=== PATIENT | female | born 1965 | race Caucasian/White ===

== ENCOUNTER 2019-09-21 11:50 | Emergency (ER) | payer OTHER, SELFPAY ==
[2019-09-21 11:58] VITALS: BP 121/87; PULSE 80; RESP 16; TEMP 36.8; O2SAT 100
--- NOTE | 2019-09-21 12:06 | ED.GENADULT ---
HPI - General Adult General Chief complaint: Ear Stated complaint: Sinus pressure Time Seen by Provider: 09/21/19 12:07 Source: patient and RN notes reviewed History of Present Illness HPI narrative: Patient is a 54-year-old female that presents the urgent care with complaints of sinus pressure/pain for the last 2-1/2 weeks. Patient states that she had strep diagnosed by her PCP and just finished the amoxicillin yesterday. Patient states that she has not been able to get rid of the congestion and has been using DayQuil and Mucinex. Patient denies any fever, nausea, vomiting, cough. No other acute complaints. No acute distress noted. Patient aware the plan of care. Related Data Home Medications Medication Instructions Recorded Confirmed amlodipine-benazepril cap 09/21/19 cetirizine [Zyrtec] 10 mg PO DAILY 09/21/19 09/21/19 Allergies Allergy/AdvReac Type Severity Reaction Status Date / Time No Known Allergies Allergy Unverified 09/21/19 11:57 Review of Systems Review of Systems: Narrative: CONSTITUTIONAL: Denies fever, chills, or sweats. EYES: Denies visual changes, redness, or discharge. ENT: Reports of sinus congestion/pressure, postnasal drainage, rhinorrhea CARDIOVASCULAR: Denies chest pain, palpitations, or edema. RESPIRATORY: Denies cough or dyspnea. GASTROINTESTINAL: Denies abdominal pain, nausea, vomiting, or diarrhea. GENITOURINARY: Denies dysuria or hematuria. SKIN: Denies rash or itching. MUSCULOSKELETAL: Denies back pain, joint pain, or myalgia. NEUROLOGIC: Denies headache, numbness, or weakness. All other systems reviewed are negative, except as documented in HPI. PMFSH Comments At the time of my signature, I reviewed and agree with the nursing past medical, surgical, social, and family history. There is no relevant family history pertinent to the patient complaint. Exam Narrative: Exam Narrative: GENERAL: This is a well-nourished, well-developed patient, in no apparent distress. HEAD: normocephalic, atraumatic. Frontal sinus tenderness EYES: PERRL. Sclera clear/white. Vision is grossly intact. EARS: External ears normal, auditory canals clear and without drainage, TMs normal without perforation. Hearing grossly intact. NOSE: External nose normal with no obvious nasal discharge, bilateral erythemic nares with no rhinorrhea. THROAT: Mucous membranes moist, posterior pharynx clear. Mild postnasal drainage NECK: Neck supple CARDIOVASCULAR: Regular rate and rhythm without murmurs, gallops, or rubs. RESPIRATORY: Clear to auscultation. Breath sounds equal bilaterally. No wheezes, rales, or rhonchi. SKIN: warm, intact with no suspicious lesions or rash, good texture and turgor. NEURO: awake, alert, and oriented to person, place and time. There were no obvious focal neurologic abnormalities. EXTREMITIES: No clubbing, cyanosis, or edema. Course Vital Signs Vital signs: Vital Signs Temperature 98.2 F 09/21/19 11:58 Pulse Rate 80 09/21/19 11:58 Respiratory Rate 16 09/21/19 11:58 Blood Pressure 121/87 09/21/19 11:58 Pulse Oximetry 100 09/21/19 11:58 Temperature 98.2 F 09/21/19 11:58 Pulse Rate 80 09/21/19 11:58 Respiratory Rate 16 09/21/19 11:58 Blood Pressure 121/87 09/21/19 11:58 Pulse Oximetry 100 09/21/19 11:58 Reviewed Medical Decision Making MDM Narrative Medical decision making narrative: Advised the patient to complete steroid regimen as prescribed. Make sure to eat and drink with the medication. Use Flonase as directed. Continue to use an antihistamine [id number] such as Zyrtec or Claritin. Increase fluids and rest. Use humidifier at night. Follow-up with PCP within 2 to 5 days or for worsening symptoms or failure to improve. Differential Diagnosis Differential Diagnosis: Pneumonia, Allergic Rhinitis, Upper respiratory cough syndrome, Pharyngitis, Sinusitis, Bronchitis, otitis media, viral URI, Asthma/reactive airway disease, COPD, emphysema Vital Si
== END 2019-09-21 12:31 | disposition home or self-care (01) ==
PROVIDERS: Emergency Provider Nurse Practitioner Family; PCP Internal Medicine Infectious Disease
DX: J32.9 Chronic sinusitis, unspecified (principal); I10 Essential (primary) hypertension
CPT/HCPCS: 99213; G0463

== ENCOUNTER 2021-10-17 18:59 | Emergency (ER) | payer BC, OTHER, SELFPAY ==
--- NOTE | ~2021-10-17 | XR_ITS ---
EXAMINATION: XR finger 5th RT min 2V EXAM DATE: 10/17/2021 19:19 INDICATION: PAIN mid phalanx Rt 5th finger;inj this PM;prev fx dist phalanx. TECHNIQUE: Right 5th finger frontal, lateral and oblique projections obtained and reviewed. There is no prior study for comparison. FINDINGS: There is acute closed posttraumatic longitudinal fracture extending from the right 5th mid dle phalangeal base to its neck. This is nondisplaced. There is overlying soft tissue swelling. IMPRESSION: Right 5th middle phalangeal intra-articular fracture into proximal interphalangeal joint . Reviewed, dictated and finalized at location . IMPRESSION: Right 5th middle phalangeal intra-articular fracture into proximal interphalangeal joint.
--- NOTE | 2021-10-17 19:03 | ED.EXTPRO ---
HPI - Extremity Problem General Chief complaint: Wound/Laceration Stated complaint: Right pinky finger injury Time Seen by Provider: 10/17/21 19:02 Source: patient Mode of arrival: ambulatory Limitations: no limitations History of Present Illness HPI Narrative: Ms. Samayoa is a 56-year-old female patient presenting to the clinic today with complaints of right pinky finger injury today when playing volleyball this evening. She reports she has had a old fracture of the same finger and never had it repaired. Does have some swelling and pain to the tip of the fifth finger. Related Data Home Medications Medication Instructions Recorded Confirmed amlodipine-benazepril cap 09/21/19 cetirizine [Zyrtec] 10 mg PO DAILY 09/21/19 09/21/19 Allergies Allergy/AdvReac Type Severity Reaction Status Date / Time No Known Allergies Allergy Unverified 10/17/21 19:10 Review of Systems Review of Systems: Pertinent positives per HPI. Patient denies any fever, chills, rash, headache, visual changes, dizziness, cough, runny nose, sore throat, shortness of breath, chest pain, palpitations, nausea, vomiting, diarrhea, constipation, abdominal pain, or any urinary issues. PMFSH Comments At the time of my signature, I reviewed and agree with the nursing past medical, surgical, social, and family history. There is no relevant family history pertinent to the patient complaint. Exam Narrative: General: Well-developed, well nourished, in no apparent distress Cardio: Regular rate and rhythm, s1 and s2 normal, no murmur appreciated. Resp: Clear to auscultation bilaterally, no rhonchi, rales, wheezing or rubs. Musculoskeletal: Mild swelling without step-off deformity of the right fifth distal finger, tender to palpation over the distal finger, DIP joint and MIP joint, limited range of motion due to pain and swelling, normal gait and station Course Course Emergency Course: Portions of this record may have been created with voice recognition software. Level of Care: Express Care Visit Vital Signs Vital signs: Vital Signs Temperature 36.6 C 10/17/21 19:07 Pulse Rate 110 H 10/17/21 19:07 Respiratory Rate 16 10/17/21 19:07 Blood Pressure 138/81 10/17/21 19:07 Pulse Oximetry 98 10/17/21 19:07 Temperature 36.6 C 10/17/21 19:07 Pulse Rate 110 H 10/17/21 19:07 Respiratory Rate 16 10/17/21 19:07 Blood Pressure 138/81 10/17/21 19:07 Pulse Oximetry 98 10/17/21 19:07 Vital signs reviewed MDM - Extremity (Nontraumatic) MDM Narrative Medical decision making narrative: Upon assessment patient's right fifth finger is swollen and tender to palpation. Is unable to fully flex or extend her DIP or MIP joints of the right fifth finger. History of fracture prior to this injury. Radiologist reviewed x-ray and reported a fracture of the interphalanx joint. Patient placed in a finger splint and mikaela taped to the fourth finger with follow-up to hand specialist. Differential Diagnosis Differential diagnosis: Likely other (Finger sprain, finger fracture, open finger fracture, soft tissue injury) Imaging Data Radiologist's impression: [facility] Edy Chapin[address] [place] [address] [phone] XRay ReportSigned Patient: Aidee Samayoa LDOB: 1965MR#: [id number]/Sex: 56 / FAcct:[id number]: EXPGLEN ADM Date: 10/17/21Attending Dr: Ordering Physician: Iron Watson APRN Date of Service: 10/17/21 Procedure(s): XR finger 5th RT min 2V Accession Number(s): [id number] cc: Iron Watson APRN; Luis, Ricardo~ EXAMINATION: XR finger 5th RT min 2V EXAM DATE: 10/17/2021 19:19 INDICATION: PAIN mid phalanx Rt 5th finger;inj this PM;prev fx dist phalanx. TECHNIQUE: Right 5th finger frontal, lateral and oblique projections obtained and reviewed. There is no prior study for comparison. FINDINGS: There is acute closed posttraumatic longitudinal fracture extending from the ri
[2021-10-17 19:07] VITALS: BP 138/81; PULSE 110; RESP 16; TEMP 36.6; O2SAT 98
== END 2021-10-17 19:41 | disposition home or self-care (01) ==
PROVIDERS: Emergency Provider Nurse Practitioner Family; PCP Internal Medicine Infectious Disease
DX: S62.646A Nondisplaced fracture of proximal phalanx of right little finger, initial encounter for closed fracture (principal); X58.XXXA Exposure to other specified factors, initial encounter; Y93.68 Activity, volleyball (beach) (court); I10 Essential (primary) hypertension
CPT/HCPCS: 29130; 73140; 99214; G0463

== ENCOUNTER 2021-11-06 10:39 | Outpatient (CLI) | payer BC, OTHER, SELFPAY ==
--- NOTE | ~2021-11-06 | XR_ITS ---
EXAMINATION: XR finger 5th RT min 2V EXAM DATE: 11/06/2021 10:58 INDICATION: Fracture Of Rt 5th Middle phalanx, Follow-Up. TECHNIQUE: Right 5th finger frontal, lateral and oblique projections obtained and reviewed. Comparis on is made to prior examination from 10/17/2021. FINDINGS: Again there is right 5th middle phalangeal longitudinal fracture extending into the proxima l interphalangeal joint. Compared to previous examination, development of about 2 mm of displacement, slight offset at the articular surface of the proximal interphalangeal joint. Also, on the lateral p rojection there is development of a few millimeters of posterior subluxation of one of the fracture f ragments. Uncertain whether or not patient would benefit from surgical fixation. Fracture margin itse lf has slightly ill-defined margins, early evidence of routine healing. 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 IMPRESSION: Right 5th middle phalangeal intra-articular fracture with development of a few millimete rs of displacement and posterior subluxation. Reviewed, dictated and finalized at location B. IMPRESSION: Right 5th middle phalangeal intra-articular fracture with developm ent of a few millimeters of displacement and posterior subluxation.
== END 2021-11-06 10:40 | disposition home or self-care (01) ==
PROVIDERS: PCP Internal Medicine Infectious Disease; Visit Provider Plastic Surgery
DX: S62.626A Displaced fracture of middle phalanx of right little finger, initial encounter for closed fracture (principal); X58.XXXA Exposure to other specified factors, initial encounter
CPT/HCPCS: 73140

== ENCOUNTER 2021-11-09 00:49 | Day surgery (SDC) | payer BC, OTHER, SELFPAY ==
[2021-11-08 08:19] VITALS: BMI 30.2
--- NOTE | 2021-11-08 08:27 | PC.NURSE ---
Report to the Outpatient Waiting Room, entrance under the green pavilion located off [facility], at time 0800 on date 11/09/21. OR Time: 1000. - You and your visitor will be asked a series of questions to screen for COVID 19 for your protection. - A mask is required within the hospital. One visitor will be allowed to accompany the patient into the hospital. Patients visitor will be instructed to remain with patient at all times or leave the building. We will allow the visitor to come back to the postoperative area when patient is ready. Preoperative COVID Testing Requirements: No COVID Test needed if: (proof is required; if not received patient will have Rapid Test prior to entry) - Patient has received COVID Vaccine at least 14 days prior to procedure date or - Patient has positive COVID test result within last 90 days of surgery date. COVID Test needed if above criteria is not met Patients may have clear liquids (water, carbonated beverages, clear teas, apple juice) until 3 hours prior to surgery with a maximum of 20 ounces. - No food from midnight until time of surgery Take the following medications with a SIP of water the morning of surgery: NONE Medications to discontinue per physician: N/A Date to take last dose: N/A Please no make-up, nail swedish, hairspray, perfume, deodorant, or body powder the day of surgery. No jewelry (including any body piercings) or valuables the day of surgery, leave them at home. Please take a shower or bath the night before, or the morning of, surgery with an antibacterial soap. Wear comfortable, loose fitting clothing. - Jewelry must be removed prior to entering the operating room. Rings and piercings that are not removed may be cut off. - The hospital will not accept responsibility for valuables. - Please leave all valuables, including medications, at home the day of surgery. If you are going home after surgery, a licensed transfer driver must drive you home. - NO public transportation without another adult. - We recommend that an adult stay with you for 24 hours following discharge. - We also recommend that you do not drive, make important decision, drink alcoholic beverages, or take any drugs that were not prescribed by your health care provider for at least 24 hours after your discharge time. Follow any additional instructions given to you from your surgeon. Telephone instructions given to HAILEE SUTTON and asked if any additional questions and then verbalized understanding. Patient advised to call surgeon office or pre surgery nurse liaison [phone] if any additional questions.
--- NOTE | 2021-11-08 11:15 | P.PNAN_ITS ---
Anes - Initial Pre Proc Eval Procedure: Operation Date: 11/09/21 10:00 Proposed Procedures p Open Reduction Internal Fixation Right Fifth Middle Phalanx - Oswald Johnson MD Date/Time: 11/08/21 11:15 Surgeon: Oswald Johnson MD Pre Op Diagnosis: right 5th middle phalanx fx Patient Data Age: 56 Gender: F Height: 1.75 m Weight: 93 kg Allergies Allergy/AdvReac Type Severity Reaction Status Date / Time No Known Allergies Allergy Unverified 11/09/21 08:22 Home Medications Medication Instructions Recorded Confirmed Type amlodipine-benazepril 1 cap PO DAILY 09/21/19 11/09/21 History cetirizine [Zyrtec] 10 mg PO DAILY 09/21/19 11/09/21 History Patient hx anesthesia problems: none Family hx anesthesia problems: none Results Review: All pre-operative results and documents have been reviewed as part of the pre-operative evaluation. [facility] Past Medical History Medical History (Updated 11/08/21 @ 11:16 by Dwayne Wade DO) Hypertension IBS (irritable bowel syndrome) Social History Social History Smoking status: Never smoker Alcohol intake: current Drinks per week: 4 Substance use: never Substance use type: does not use Living arrangements: with family Spiritual care concerns: No Anes - Eval Final PreProcedure Day of Procedure 11/08/21 11:15 Patient weight: obese Heart: regular rate and rhythm Lungs: clear to auscultation and normal air movement Airway: Mallampati scale class III Neurological: alert and oriented Last oral intake: >/= 8 hours ASA classification: III Emergent: no Anesthetic plan: proceed Anesthesia type and monitoring: general GIVS and standard monitoring Results Review: All pre-operative results and documents have been reviewed as part of the pre-operative evaluation. Informed Consent: The patient's anesthetic plan and its attendant risks and benefits were discussed with the patient/family/POA. Questions were solicited and answers provided to the satisfaction of the patient/family/POA.
--- NOTE | ~2021-11-09 | XR_ITS ---
EXAMINATION: XR surgery orthopedic EXAM DATE: 11/09/2021 15:31 INDICATION: ORIF Rt 5th Finger TECHNIQUE: Fluoroscopy used during XR surgery orthopedic performed by Dr. Oswald Johnson MD. Radi ologist was not present for the imaging or procedure. Total fluoroscopic time of 135 seconds The D AP for this procedure was 0.03 mGym2. A total of 3 images sent to PACS from the exam. Correlation is made to right 5th finger x-ray from 3 days ago. FINDINGS: There has been interval placement of a screw in the right 5th middle phalanx, bridging the 2 fracture fragments which are in anatomic position. Correlate with procedure note. IMPRESSION: Status post right 5th middle phalangeal ORIF. Reviewed, dictated and finalized at location B.
--- NOTE | 2021-11-09 07:13 | WPDHPUPDATE1 ---
History and Physical Update Update Date/Time: 11/09/21 07:13 History and Physical has been reviewed, including an updated exam of the patient. There are NO changes in the patient's condition. Risks, benefits, and alternatives have been discussed and questions answered. Patient agrees to proceed with procedure.
[2021-11-09] MEDS: ACETAMINOPHEN 500 MG TABLET 1000 MG PO (08:40)
[2021-11-09] MEDS: LACTATED RINGERS 1,000 ML 30 ML IV CONT ×2 (08:50→12:03)
[2021-11-09 08:57] VITALS: BP 132/82; PULSE 70; RESP 18; TEMP 36.7; O2SAT 98
[2021-11-09] MEDS: KETOROLAC 15 MG/ML VIAL (*BKC) IV PUSH (09:43)
[2021-11-09] MEDS: LIDO 1%/EPINEPHRINE 1:100,000 50 ML VIAL 10 ML INFILTRATE (09:58)
[2021-11-09] MEDS: ceFAZolin 2 GM/D5W 50 ML 2 GM/50 ML BAG IVPB (09:58)
[2021-11-09] MEDS: BACITRACIN OINTMENT 15 GM TUBE 1 APPLIC TOPICAL (10:35)
[2021-11-09 12:03] VITALS: BP 111/63; PULSE 70; RESP 14; O2SAT 100
[2021-11-09 12:30] VITALS: BP 110/69; PULSE 66; RESP 16
[2021-11-09 13:00] VITALS: BP 116/74; PULSE 64; RESP 16
[2021-11-09 13:15] VITALS: BP 121/76; PULSE 70; RESP 16
--- NOTE | 2021-11-09 13:59 | SUR.PHASEII ---
1240 PT STATES DRESSING FEELS TOO TIGHT. RT 5TH FINGERTIP WARM TO THE TOUCH, PURPLE IN COLOR, WITH CAP REFILL [address] KRUSE AWARE AND STATES TO TAKE DRESSING OFF & REAPPLY. DRESSING CHANGED. PT STATES DRESSING FEELS MUCH BETTER. RT 5TH FINGERTIP WARM TO THE TOUCH, MORE NORMAL IN COLOR (LESS PURPLE), WITH CAP REFILL <3 SEC.
--- NOTE | 2021-11-09 18:31 | W.PM.PROC2 ---
Procedure Note - Detailed Date of Procedure 11/09/21 Pre-op Diagnosis right 5th middle phalanx fx Post-op Diagnosis Same Procedure Performed Open reduction and internal fixation of a displaced intra-articular shaft fracture of right 5th middle phalanx Surgeon Oswald Johnson MD Bus Escort Nazario Clark MAC Indications Displaced fracture with comminution Findings An oblique proximal shaft fracture extending intra-articularly with transverse fracture line across the base. On the radial metaphysis there was a compressed defect in the cortex that limited the space for placement of fixation. Description of Procedure The patient was greeted in the holding area. She still had a splint on. We marked the base of the 5th digit indicating the middle phalanx with a dot. She was taken to the operating room placed supine on the operating table. She was given IV sedation. The extremity was prepped and draped in usual fashion. A time-out was held and confirmed. The digital block was placed with 1% lidocaine with epinephrine. The extremity was exsanguinated and the tourniquet inflated to 250 mmHg. Initial images were made to confirm the site. A dorsal midline incision was made through the skin and extended down to the extensor tendon. Fatty tissue was left attached to tendon as much as possible. The fracture was not readily visible from that vantage. The transverse retinaculum was divided distally to allow examination for fracture at that site. At the base of the bone the fracture line was identified radially. It seemed to distally to about 2/3 of the length of the phalanx. I was not certain as to the direction of the fracture lines elsewhere or the size of the fragment. I split the terminal tendon and exposed underneath it on the ulnar side identifying the transverse fracture across the base. Dissecting radially I noticed the compressed condition of the radial metaphysis. I chose a site for screw placement direction and direction to drill. My intention was to place a 1.5 mm lag screw. I applied a modified Brown- Adson bone forceps across the base to carefully compress the fracture. A 1.5 mm bit and guide were used to direct the drill. Unfortunately the drill penetrated the entire bone. This resulted in a need to abort the idea of a lag screw. Instead, I placed a 2 mm cortical screw. A measurement was made and a 9 mm screw was chosen and the site was slightly countersunk. The screw was placed and it appeared to be satisfactory on images and stable. The small bone clamp was removed. During this process the remainder of central slip was avulsed. Attempt to place a Mitek anchor dorsally, avoiding the screw and the compressed fracture site resulted in slight cracking of the cortex into the compressed fracture site. The bone would not tolerate reaming of the hole for the Mitek anchor and that idea was aborted. Thought was given to placing another hole in the bone in some other way to allow direct suture of the central slip. This seemed too risky with this bone. Bone chips were packed into the radial metaphysis compression fracture and the Mitek drill hole to support the radial articular surface. The transverse band was repaired distally with 4-0 Vicryl. The central slip like ruby. Suture were placed between the central slip and the dorsal lateral band on the ulnar side to try to support the length of the central slip and to resist volar migration of the lateral band should the finger begin to develop a boutonniere deformity. The skin was closed with 5-0 Nylon. A thin bandage was applied and a dorsal aluminum foam splint holding the metacarpophalangeal joint at approximately 60? and the IP joints at 0. Six ml of additional Lidocaine with epinephrine was injected. The tourniquet was released prior to skin closure. The patient had been given 2 g Ancef preop as well as p.o. Tylenol 1000 mg and Toradol 15 mg IV. Implants 2x9 m cortical [place] [facility]
== END 2021-11-09 13:28 | disposition home or self-care (01) ==
PROVIDERS: PCP Internal Medicine Infectious Disease; Visit Provider Plastic Surgery
PROC: (CPT 26735; principal; 2021-11-09 10:00)
DX: S62.626A Displaced fracture of middle phalanx of right little finger, initial encounter for closed fracture (principal); X58.XXXA Exposure to other specified factors, initial encounter; Y93.68 Activity, volleyball (beach) (court); I10 Essential (primary) hypertension; E66.9 Obesity, unspecified; Z68.31 Body mass index [BMI] 31.0-31.9, adult
CPT/HCPCS: 26735; A9270; C1713; J0690; J1885; J2250; J2704; J3010; J7120

== ENCOUNTER 2022-01-04 16:00 | Outpatient (CLI) | payer BC, OTHER, SELFPAY ==
--- NOTE | ~2022-01-04 | XR_ITS ---
XR finger 5th RT min 2V DATE: 01/04/2022 16:14 INDICATION: Fracture/surgery follow-up TECHNIQUE: 3 views COMPARISON: 11/06/2021 right fifth finger FINDINGS: There is transverse screw at the base of the middle phalanx of the fifth digit. The fractur e line is no longer readily evident, consistent with interval healing. There is some lucency around the screw and lateral base of the middle phalanx, loss of definition of the lateral articular cortex of the middle phalanx at the proximal phalangeal joint, with interval na rrowing of the proximal interphalangeal joint space. Osteomyelitis and must be considered. Proximal i nterphalangeal joint infection Prominent osteoarthritic change of distal interphalangeal joint. IMPRESSION: Screw fixation of middle phalangeal fracture Mild lucency around the screw and at the lateral base of the middle phalanx with loss of definition o f the articular cortex of the lateral aspect of the base of the middle phalanx, and narrowing at the proximal interphalangeal joint since 11/06/2021, suggesting possible osteomyelitis and proximal inter phalangeal joint infection Reviewed, dictated and finalized at location A. IMPRESSION: Screw fixation of middle phalangeal fracture Mild lucency around the screw and at the lateral base of the middle phalanx wit h loss of definition of the articular cortex of the lateral aspect of the base of the middle phalanx, and narrowing at the proximal interphalangeal joint sinc e 11/06/2021, suggesting possible osteomyelitis and proximal interphalangeal jeniffer int infection
== END 2022-01-04 16:01 | disposition home or self-care (01) ==
LOC: ANHIMG 16:01
PROVIDERS: PCP Internal Medicine Infectious Disease; Visit Provider Plastic Surgery
DX: S62.626D Displaced fracture of middle phalanx of right little finger, subsequent encounter for fracture with routine healing (principal)
CPT/HCPCS: 73140

== ENCOUNTER 2022-02-01 08:15 | Outpatient (CLI) | payer BC, OTHER, SELFPAY ==
--- NOTE | ~2022-02-01 | XR_ITS ---
XR finger 5th RT min 2V DATE: 02/01/2022 08:37 INDICATION: Fracture follow-up TECHNIQUE: 3 views of fifth digit COMPARISON: 01/04/2022 right fifth finger 10/17/2021 right fifth digit FINDINGS: Again noted is a transverse screw at the base of the middle phalanx of the fifth digit. The linear oblique fracture line of the middle phalanx is no longer radiographically detectable. There is interval narrowing at the proximal interphalangeal joint space of the fifth digit since 10/17 but no definite bone destruction. Osteoarthritis at the distal interphalangeal joint of the fifth digit. IMPRESSION: Healing nondisplaced fracture of middle phalanx Reviewed, dictated and finalized at location A.
== END 2022-02-01 08:16 | disposition home or self-care (01) ==
PROVIDERS: PCP Internal Medicine Infectious Disease; Visit Provider Plastic Surgery
DX: S62.626D Displaced fracture of middle phalanx of right little finger, subsequent encounter for fracture with routine healing (principal); X58.XXXD Exposure to other specified factors, subsequent encounter
CPT/HCPCS: 73140

== ENCOUNTER 2022-06-09 09:12 | Outpatient (CLI) | payer BC, OTHER, SELFPAY ==
[2022-06-09 18:19] LABS: Alanine Aminotransferase 24 U/L (6-35); Albumin Level 4.4 g/dL (3.5-5.1); Alkaline Phosphatase 94 U/L (38-126); Anion Gap 14 mmol/L (8-16); Aspartate Amino Transferase 33 U/L (14-36); Bilirubin,Total 1.2 mg/dL (0.2-1.3); Blood Urea Nitrogen 18 mg/dL (7-17); Calcium 9.1 mg/dL (8.4-10.2); Carbon Dioxide 27 mmol/L (22-30); Chloride 102 mmol/L (98-107); Cholesterol 236 mg/dL (0-200); Estimated Glomerular Filt Rate 57; Glucose 79 mg/dL (65-110); HDL Direct 44 mg/dL; Potassium 3.9 mmol/L (3.4-5.0); Sodium 143 mmol/L (137-145); Triglycerides 203 mg/dL (<150)
[2022-06-09 18:30] LABS: LDL Cholesterol Direct 121 mg/dL
[2022-06-09 18:41] LABS: Basophils Percent Auto 0.8 % (0.2-1.2); Eosinophils Absolute Auto 0.2 K/mm3 (0-0.3); Hematocrit 43.9 % (37.0-47.0); Hemoglobin 14.3 g/dL (12.0-15.0); Immature Granulocyte Absolute 0.02 K/mm3 (0.00-0.031); Immature Granulocyte Percent A 0.4 % (0-0.5); Lymphocytes Absolute Auto 1.35 K/mm3 (0.9-3.2); Lymphocytes Percent Auto 27.4 % (18.3-44.2); Mean Corpuscular HGB Conc 32.6 g/dl (32-36); Mean Corpuscular Hemoglobin 29.4 pg (26-34); Mean Corpuscular Volume 90.3 fl (80-100); Mean Platelet Volume 11.4 fl (7.4-10.4); Monocytes Absolute Auto 0.4 K/mm3 (0.1-0.6); Monocytes Percent Auto 7.7 % (2.6-8.5); Neutrophils Percent Auto 60.7 % (45.5-73.1); Platelet Count Result 203 k/mm3 (150-375); Red Blood Count 4.86 M/mm3 (4.2-5.4); Red Cell Distribution Width 12.3 % (11.5-14.5); White Blood Count 4.9 K/mm3 (4.5-10.0)
== END 2022-06-09 09:13 | disposition home or self-care (01) ==
LOC: ANHGOSHLAB 09:16
PROVIDERS: PCP Internal Medicine Infectious Disease; Visit Provider Internal Medicine Infectious Disease
DX: Z00.00 Encounter for general adult medical examination without abnormal findings (principal)
CPT/HCPCS: 36415; 80053; 80061; 85025